=== PATIENT | male | born 1995 | race Caucasian/White ===

== ENCOUNTER 2017-10-07 08:25 | Emergency (ER) | payer BC ==
[2017-10-07] MEDS: LORAZEPAM 2 MG INJ IV (09:01)
[2017-10-07] MEDS: SOD CHLORIDE 0.9% 1,000 ML IV (09:49)
[2017-10-07 10:05] LABS: ADD MAN DIFF? NO
[2017-10-07 10:08] LABS: BASOPHIL # 0.1 10^3/ul (0.0-0.1); BASOPHILS % 0.6 % (0.0-2.0); EOSINOPHILS # 0.4 10^3/ul (0.0-0.5); EOSINOPHILS % 4.7 % (0.0-7.0); HEMATOCRIT 45.9 % (42.0-52.0); HEMOGLOBIN 14.9 g/dl (14.0-18.0); LYMPHOCYTES # 1.8 10^3/ul (0.8-2.9); LYMPHOCYTES % 21.8 % (15.0-51.0); MEAN CORPUSCULAR HEMOGLOBIN 28.5 pg (29.0-33.0); MEAN CORPUSCULAR HGB CONC 32.5 g/dl (32.0-37.0); MEAN CORPUSCULAR VOLUME 87.8 fl (82.0-101.0); MEAN PLATELET VOLUME 8.8 fl (7.4-10.4); MONOCYTE # 0.8 10^3/ul (0.3-0.9); MONOCYTES % 9.9 % (0.0-11.0); NEUTROPHIL # 5.1 10^3/ul (1.6-7.5); NEUTROPHILS % 62.6 % (39.0-77.0); PLATELET COUNT 376 10^3/UL (140-415); RED BLOOD COUNT 5.23 10^6/ul (4.70-6.10); RED CELL DISTRIBUTION WIDTH 12.7 % (11.5-14.5)
[2017-10-07 10:08] LABS: WHITE BLOOD COUNT 8.1 10^3/ul (4.8-10.8)
[2017-10-07 10:29] LABS: ALANINE AMINOTRANSFERASE 33 IU/L (13-69); ALBUMIN 4.6 g/dl (3.3-4.9); ALBUMIN/GLOBULIN RATIO 1.35; ALKALINE PHOSPHATASE 97 IU/L (42-121); ANION GAP 19 (8-16); ASPARTATE AMINO TRANSFERASE 24 IU/L (15-46); BLOOD UREA NITROGEN 19 mg/dl (7-20); CALCIUM 9.8 mg/dl (8.4-10.2); CARBON DIOXIDE 29 mmol/L (21-31); CHLORIDE 100 mmol/L (97-110); CREATININE 0.97 mg/dl (0.61-1.24); GLUCOSE 99 mg/dl (70-220); POTASSIUM 3.7 mmol/L (3.5-5.1); SODIUM 144 mmol/L (135-144)
[2017-10-07 10:37] LABS: ETHANOL < 10.0 mg/dl
[2017-10-07 11:42] LABS: BARBITURATES Negative (NEGATIVE); BENZODIAZEPINES Negative (NEGATIVE); CANNABINOIDS Positive (NEGATIVE); COCAINE Negative (NEGATIVE); OPIATES Negative (NEGATIVE)
[2017-10-07 11:45] LABS: AMPHETAMINE/METHAMPHETAMINE POSITIVE (NEGATIVE)
[2017-10-07] MEDS: ALBUTEROL/IPRATROPIUM (NEB) 3 ML AMP HHN (13:50)
[2017-10-07] MEDS: METHYLPREDNISOLONE 125 MG INJ IV (14:25)
[2017-10-07] MEDS: ALBUTEROL 0.5% (NEB) 2.5 MG/0.5 ML AMP INH (14:54)
== END 2017-10-07 17:40 | disposition home or self-care (01) ==
LOC: E/R 08:25
DX: S43.101D Unspecified dislocation of right acromioclavicular joint, subsequent encounter (principal); F15.10 Other stimulant abuse, uncomplicated; F12.90 Cannabis use, unspecified, uncomplicated; M25.511 Pain in right shoulder; X58.XXXD Exposure to other specified factors, subsequent encounter
CPT/HCPCS: 36415; 71045; 73030-RT; 80053; 80306; 80307; 82962; 85025; 93005; 94644; 94664; 96374; 96375; 99285-25